=== PATIENT | female | born 1955 | race Caucasian/White ===

== ENCOUNTER → 2016-08-24 | Outpatient (CLI) | payer MEDICAID ==
[~2016-08-24] MED LIST: ALBU0.63 NEB; ALBU8.5H3 INH; ASPI-496 PO; ATEN25TA PO; ATEN50TA41 PO; ATOR20TA9 PO; BUPR150T6 PO; CETI10TA18 PO; CITA20TA5 PO; FLUT1DIS IH; FLUT1DIS5 IH; Fluoxetine Hcl PO; GABA100C8 PO; GABA300C10 PO; HYDR25TA11 PO; LISI-167 PO; LISI2.5T PO; MECL25TA4 PO; MONT10TA9 PO; OLAN5TAB9 PO; RANI150T4 PO; TIZA4TAB PO; TRAZ100T15 PO; TRAZ50TA18 PO
== END | disposition home or self-care (01) ==
LOC: CFH 12:13
PROVIDERS: ATTEND Internal Medicine Cardiovascular Disease
DX: Z82.49 Family history of ischemic heart disease and other diseases of the circulatory system (principal); I10 Essential (primary) hypertension; E78.5 Hyperlipidemia, unspecified; R06.02 Shortness of breath; I08.1 Rheumatic disorders of both mitral and tricuspid valves; I51.7 Cardiomegaly
CPT/HCPCS: 78452; 93017; 93306; A9502

== ENCOUNTER → 2017-02-19 | Outpatient (CLI) | payer MEDICAID ==
[~2017-02-19] MED LIST changes: -ALBU8.5H3 INH; +ALBU8.5H8 INH; +GABA-826 PO; -GABA100C8 PO
== END | disposition home or self-care (01) ==
LOC: CVU 11:43
PROVIDERS: ATTEND Surgery
DX: I65.23 Occlusion and stenosis of bilateral carotid arteries (principal); I10 Essential (primary) hypertension; E78.5 Hyperlipidemia, unspecified; Z72.0 Tobacco use
CPT/HCPCS: 93880

== ENCOUNTER → 2017-10-27 | Outpatient (CLI) | payer MEDICAID | END | disposition home or self-care (01) | LOC: CVU 09:20 | PROVIDERS: ATTEND Surgery | DX: I65.23 Occlusion and stenosis of bilateral carotid arteries (principal); J44.9 Chronic obstructive pulmonary disease, unspecified; G47.30 Sleep apnea, unspecified | CPT/HCPCS: 93880 ==